=== PATIENT | female | born 1970 | race Caucasian/White ===

== ENCOUNTER 2023-07-12 14:41 | Emergency (ER) | payer MEDICARE, SELFPAY ==
[2023-07-12 14:49] VITALS: BP 128/72
== END 2023-07-12 16:00 | disposition left against medical advice (07) ==
LOC: EMR 14:41
PROVIDERS: EMERGENCY PHYSICIAN Emergency Medicine
DX: R51.9 Headache, unspecified (principal); Z53.21 Procedure and treatment not carried out due to patient leaving prior to being seen by health care provider
CPT/HCPCS: 99281; 70450